=== PATIENT | female | born 1965 | race Caucasian/White ===

== ENCOUNTER 2023-08-08 13:47 | Outpatient (CLI) | payer OTHER, SELFPAY ==
--- NOTE | ~2023-08-08 | MM_ITS ---
EXAMINATION: MM screening dontrell BI w [place] HISTORY: Screening mammogram TECHNIQUE: Craniocaudal and mediolateral oblique 3-D tomosynthesis images were obtained and synthetic 2-D images were generated. Bilateral rotated lateral CC views. CAD analysis was submitted and interp reted. COMPARISON: No prior mammogram is available for comparison at this institution. BREAST PARENCHYMAL COMPOSITION: The breasts are heterogeneously dense, which may obscure small masses . FINDINGS: There is no evidence of suspicious mass, calcification, or architectural distortion to sugg est malignancy in either breast. IMPRESSION: 1. No mammographic evidence of malignancy. 2. Recommend routine screening mammography in one year. BI-RADS Category 1: Negative Reviewed, dictated and finalized at location B.
== END 2023-08-08 13:48 ==
LOC: MICIMG 13:49
PROVIDERS: PCP Emergency Medicine; Visit Provider Emergency Medicine
DX: Z12.31 Encounter for screening mammogram for malignant neoplasm of breast (principal)
CPT/HCPCS: 77063; 77067

== ENCOUNTER 2023-08-09 08:09 | Outpatient (CLI) | payer OTHER, SELFPAY ==
[2023-08-09 19:52] LABS: Alanine Aminotransferase 20 U/L (6-35); Albumin Level 4.3 g/dL (3.5-5.1); Alkaline Phosphatase 77 U/L (38-126); Anion Gap 8 mmol/L (4-12); Aspartate Amino Transferase 30 U/L (14-36); Bilirubin,Total 0.6 mg/dL (0.2-1.3); Blood Urea Nitrogen 15 mg/dL (7-17); Calcium 9.2 mg/dL (8.4-10.2); Carbon Dioxide 26 mmol/L (22-30); Chloride 102 mmol/L (98-107); Cholesterol 178 mg/dL (0-200); Estimated Glomerular Filt Rate > 60; Glucose 70 mg/dL (65-110); HDL Direct 72 mg/dL; Potassium 4.2 mmol/L (3.4-5.0); Sodium 136 mmol/L (137-145); Triglycerides 53 mg/dL (<150)
[2023-08-09 20:03] LABS: LDL Cholesterol Direct 97 mg/dL
== END 2023-08-09 08:10 | disposition home or self-care (01) ==
LOC: ANHGOSHLAB 08:10
PROVIDERS: PCP Emergency Medicine; Visit Provider Emergency Medicine
DX: Z13.1 Encounter for screening for diabetes mellitus (principal); Z13.220 Encounter for screening for lipoid disorders
CPT/HCPCS: 36415; 80053; 80061; 83036

== ENCOUNTER 2023-09-25 01:15 | Day surgery (SDC) | payer OTHER, SELFPAY ==
[2023-09-12 13:45] VITALS: BMI 22.5
[2023-09-25 07:33] VITALS: BP 115/86; PULSE 64; RESP 18; TEMP 36.5; O2SAT 100
[2023-09-25] MEDS: LACTATED RINGERS 1,000 ML 150 ML IV CONT (07:40)
--- NOTE | 2023-09-25 07:48 | WPDANESEPPF ---
Anes - Initial Pre Proc Eval Procedure: Operation Date: 09/25/23 08:30 Proposed Procedures p Screening Colonoscopy - Aurelio Zheng DO Date/Time: 09/25/23 07:48 Surgeon: Aurelio Zheng DO Pre Op Diagnosis: Screening for malignant neoplasm of colon Patient Data Age: 58 Gender: F Height: 1.65 m Weight: 65.6 kg Last Vital Signs Temp 36.5 C 09/25/23 07:33 Pulse 64 09/25/23 07:33 Resp 18 09/25/23 07:33 BP 115/86 09/25/23 07:33 Pulse Ox 100 09/25/23 07:33 O2 Del Method Room Air 09/25/23 07:33 Allergies Allergy/AdvReac Type Severity Reaction Status Date / Time No Known Allergies Allergy Verified 09/25/23 07:32 Home Medications Medication Instructions Recorded Confirmed Type aspirin 325 mg tablet 325 mg PO DAILY 07/17/23 09/12/23 History cholecalciferol (vitamin D3) 250 250 mcg PO DAILY 07/17/23 09/12/23 History mcg (10,000 unit) capsule multivitamin 1 tablet PO DAILY 07/17/23 09/12/23 History Patient hx anesthesia problems: none Family hx anesthesia problems: none Results Review: All pre-operative results and documents have been reviewed as part of the pre-operative evaluation. [facility] Surgical History Surgical History History of hysterectomy Family History Family History Father Hypertension Grandparent Diabetes mellitus Grandparent Cerebrovascular accident Social History Social History Social History: caffiene-coffee 1 day Smoking status: Never smoker Second hand tobacco smoke exposure: No Alcohol intake: current Drinks per week: 2 Alcohol use details: weekly Substance use: never Substance use type: does not use Do You Feel Safe in your Home?: Yes Lack of Transportation: No Lack of Food: Never True Current Housing: I Have Housing Concerned About Future Housing: No Difficulty Paying Gas/Electric Bills: No Difficulty Paying for Meds: No Currently Unemployed: No Education: Master's Degree or Higher Difficulty w/ Childcare or Family Care: No Living arrangements: with family Additional living arrangements comments: spouse 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 Gender identity (if verbalized by the patient): Female Sexual Orientation (if Verbalized by the Patient): Straight or Heterosexual Spiritual care concerns: No Agree to blood products: No Anes - Eval Final PreProcedure Day of Procedure 09/25/23 07:48 Patient weight: normal Heart: regular rate and rhythm Lungs: clear to auscultation Airway: Mallampati scale class II Neurological: alert and oriented Last oral intake: >/= 8 hours ASA classification: I Emergent: no Anesthetic plan: proceed Anesthesia type and monitoring: general GIVS and standard monitoring Results Review: All pre-operative results and documents have been reviewed as part of the pre-operative evaluation. Informed Consent: The patient's anesthetic plan and its attendant risks and benefits were discussed with the patient/family/POA. Questions were solicited and answers provided to the satisfaction of the patient/family/POA.
--- NOTE | 2023-09-25 08:28 | PM.IMHP ---
H&P: HPI History of Present Illness Date/Time: 09/25/23 08:28 Chief Complaint: screening for colorectal cancer Narrative: this is a 58-year-old woman who presents for colonoscopy. She denies any hematochezia or melena. She denies any first-degree relatives with history colon cancer. Review of Systems Review of Systems: All systems reviewed & are unremarkable except as noted in HPI and below Constitutional: Constitutional: Denies chills, Denies fever(s), Denies headache(s) and Denies weight loss Eyes: Eyes: Denies change in vision ENT: Denies dizziness, Denies headache(s), Denies neck mass and Denies throat swelling Cardiovascular: Cardiovascular: Denies chest pain, Denies lightheadedness and Denies dyspnea Respiratory: Respiratory: Denies cough, Denies dyspnea and Denies wheezing Gastrointestinal: Gastrointestinal: Denies abdominal pain, Denies change in bowel habits, Denies nausea and Denies vomiting Genitourinary: Genitourinary: Denies hematuria and Denies dysuria Musculoskeletal: Musculoskeletal: Reports as per HPI Integumentary/Breasts: Skin/Breast: Reports as per HPI Neurologic: Denies dizziness and Denies headache(s) Allergic/Immunologic: Allergic/Immunologic: Denies throat swelling and Denies wheezing PMFSH Surgical History Surgical History History of hysterectomy Family History Family History Father Hypertension Grandparent Diabetes mellitus Grandparent Cerebrovascular accident Social History Social History Social History: caffiene-coffee 1 day Smoking status: Never smoker Second hand tobacco smoke exposure: No Alcohol intake: current Drinks per week: 2 Alcohol use details: weekly Substance use: never Substance use type: does not use Do You Feel Safe in your Home?: Yes Lack of Transportation: No Lack of Food: Never True Current Housing: I Have Housing Concerned About Future Housing: No Difficulty Paying Gas/Electric Bills: No Difficulty Paying for Meds: No Currently Unemployed: No Education: Master's Degree or Higher Difficulty w/ Childcare or Family Care: No Living arrangements: with family Additional living arrangements comments: spouse 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 Gender identity (if verbalized by the patient): Female Sexual Orientation (if Verbalized by the Patient): Straight or Heterosexual Spiritual care concerns: No Agree to blood products: No Meds Home Medications and Allergies Home Medications Medication Instructions Recorded Confirmed Type aspirin 325 mg tablet 325 mg PO DAILY 07/17/23 09/12/23 History cholecalciferol (vitamin D3) 250 250 mcg PO DAILY 07/17/23 09/12/23 History mcg (10,000 unit) capsule multivitamin 1 tablet PO DAILY 07/17/23 09/12/23 History Allergies Allergy/AdvReac Type Severity Reaction Status Date / Time No Known Allergies Allergy Verified 09/25/23 07:32 Vital Signs Vital Signs - 24 hr 09/25/23 07:33 Temperature 36.5 C Pulse Rate 64 Respiratory Rate 18 Blood Pressure 115/86 Pulse Oximetry 100 Oxygen Delivery Room Air Exam Const: General: no acute distress and alert Orientation/consciousness: patient oriented x3 HENMT: Head: normocephalic and atraumatic Ears: hearing grossly normal bilaterally Face/Nose/Sinus: Normal nares present Mouth: Yes Normal oral and palatal mucosa present Eyes: Periorbital: periorbital findings normal Sclera: sclerae normal EOM: EOMs intact bilaterally Neck: Neck: normal visual inspection, no lymphadenopathy and trachea midline Chest: Chest palpation & inspection: normal inspection of the chest Resp: Effort & Inspection: normal respiratory effort Auscultation: clear to auscultation bilaterally Cardio: Ju
[2023-09-25 09:00] VITALS: BP 100/68; PULSE 65; RESP 32; O2SAT 98
[2023-09-25 09:10] VITALS: BP 110/76; PULSE 64; RESP 24; O2SAT 100
[2023-09-25 09:20] VITALS: BP 119/74; PULSE 64; RESP 24; O2SAT 100
== END 2023-09-25 09:23 | disposition home or self-care (01) ==
PROVIDERS: PCP Emergency Medicine; Visit Provider Surgery
PROC: 0DJD8ZZ Inspection of Lower Intestinal Tract, Via Natural or Artificial Opening Endoscopic (ICD-10-PCS; CPT 45378; principal; 2023-09-25 08:30)
DX: Z12.11 Encounter for screening for malignant neoplasm of colon (principal)
CPT/HCPCS: 45378; J2001; J2704; J7120

== ENCOUNTER 2024-01-22 09:16 | Outpatient (CLI) | payer OTHER, SELFPAY | END 2024-01-22 09:17 | disposition home or self-care (01) | LOC: ANHGOSHLAB 09:17 | PROVIDERS: PCP Emergency Medicine; Visit Provider Family Medicine | DX: Z78.0 Asymptomatic menopausal state (principal); Z82.62 Family history of osteoporosis | CPT/HCPCS: 36415; 82306 ==

== ENCOUNTER 2024-03-12 08:14 | Outpatient (CLI) | payer OTHER, SELFPAY ==
[2024-03-12 13:12] LABS: Vitamin D 25 Hydroxy 99.8 ng/mL
== END 2024-03-12 08:15 | disposition home or self-care (01) ==
LOC: ANHGOSHLAB 08:15
PROVIDERS: PCP Emergency Medicine; Visit Provider Nurse Practitioner Family
DX: E55.9 Vitamin D deficiency, unspecified (principal)
CPT/HCPCS: 36415; 82306

== ENCOUNTER 2024-03-14 08:16 | Outpatient (CLI) | payer OTHER, SELFPAY ==
--- NOTE | ~2024-03-14 | DEXA_ITS ---
Bone Density Report Name: YOCASTA GONZALEZ Age: 59 Sex: Female Ethnicity: White Date of : 1965 Indication: postmenopausal; screening for osteoporosis; prior fracture; hysterectomy; Referring Provider: NATHALY DEL CID Study: Bone densitometry was performed. Exam Date: March 14, 2024 Accession number: [id number] Bone Density: Region BMD T-score Z-score Classification AP Spine(L1-L4) 0.732 -2.9 -1.7 Osteoporosis Femoral Neck (Left) 0.592 -2.3 -1.2 Osteopenia Total Hip (Left) 0.729 -1.7 -1.0 Osteopenia Femoral Neck (Right) 0.637 -1.9 -0.8 Osteopenia Total Hip (Right) 0.781 -1.3 -0.5 Osteopenia Femoral Neck Mean 0.614 -2.1 -1.0 Osteopenia Total Hip Mean 0.755 -1.5 -0.7 Osteopenia World Health Organization criteria for BMD impression classify patients as: Normal (T-score at or above -1.0), Osteopenia (T-score between -1.0 and -2.5), or Osteoporosis (T-score at or below -2.5). 10-year Fracture Risk: FRAX not reported because: Some T-score for Spine Total or Hip Total or Femoral Neck at or below -2.5 Clinical Information Provided by Patient: Has had a low trauma fracture Has used the following medications: Vitamin D, Calcium, MULTI Has the following medical conditions: Hysterectomy Patient maximum height was 65.2 Menopause Age: 52 Drinks caffeinated beverages Onset of menses at age 18 Number of children 0 Impression: The patient has established osteoporosis, based on the Total Spine T-score and the existence of a prior fracture. The patient has risk factors, including: previous fracture. Discussion: HIGH RISK OF FRACTURE. BONE DENSITY IS UNDESIRABLY LOW AT ONE OR MORE SKELETAL SITES, CONSISTENT WITH POSTMENOPAUSAL OSTEOPOROSIS. This patient's lowest T-score, in a patient who has previously fractured, meets the World Health Organization's (WHO) criteria for severe osteoporosis. In untreated patients, the risk of osteoporotic fracture increases approximately two-fold for each 1.0 SD decrease in T-score. Low bone density is not the only risk factor for fracture; also consider factors such as patient's age, frailty or poor health, risk of falling, risk of injury, previous osteoporotic fracture, family history of osteoporosis, cigarette smoking, low body weight, etc. Not everyone with low bone mineral density has osteoporosis; osteomalacia and other metabolic bone disorders should also be considered. Patients who have osteoporosis should be evaluated for specific diseases and conditions (secondary causes) that may cause or contribute to bone loss. The [place] Association of Clinical Endocrinologists (AACE) and National Osteoporosis Foundation (NOF) recommend pharmacologic intervention for all postmenopausal women whose T-score is in this range. The patient should follow a healthful lifestyle (good nutrition with adequate calcium and vitamin D, and appropriate weight-bearing exercise). Follow-Up: Consider a repeat BMD and Vertebral Fracture Assessment (VFA) exam in 2 years or sooner if medically necessary, to reassess this patient's status. Reported by: KUSHAL on 03/14/2024 8:35:00 AM. Reviewed, dictated and finalized at location A.
== END 2024-03-14 08:17 | disposition home or self-care (01) ==
PROVIDERS: PCP Emergency Medicine; Visit Provider Family Medicine
DX: Z78.0 Asymptomatic menopausal state (principal); M85.89 Other specified disorders of bone density and structure, multiple sites; M81.0 Age-related osteoporosis without current pathological fracture
CPT/HCPCS: 77080

== ENCOUNTER 2024-09-15 08:05 | Outpatient (CLI) | payer OTHER, SELFPAY ==
--- OUTSIDE RECORDS SUMMARY | 2024-09-15 08:10 | XMS_ITS ---
Author Organization [facility] Billing Info Address [address] [place] [address] Care Team Providers Care Drain Technician Name Role Phone SVEN CALERO Primary Care Provider FREEDOM BOSE Unavailable Unavailable REASON FOR VISIT WWE/No Pap... ALJ Encounters Encounter Location Date Provider Diagnosis [id number] [id number] 04/13/2023 SVEN CALERO Plan Of Treatment No Information Progress Notes * Kemi GIVENS LDOB: [birth year] (59 yo F)Acc No.[id number]:04/13/2023 PROGRESS NOTE Patient: Kemi MAY Provider: Dennis Calero MD :1965 A ge:58 Y S ex:Female Date:04/13/2023 [facility]#:[id number] Address:[address] [place], [place] [id number] Subjective: * Chief Complaints: * 1 . WWE/No Pap... ALJ. * Medical History: Objective: * Vitals: Assessment: Plan: * Treatment: * Care Plan Details* * This progress note has not b een verified nor is it considered complete until locked and signed by the provider. Sign off status: Pending * Provider: Dennis Calero MD Date: 0 04/13/2023 Generated for Radhika hernandez/Mark/eTransmitting on: 0 09/15/2024 08:09 AM CDT
--- OUTSIDE RECORDS SUMMARY | 2024-09-15 08:10 | XMS_ITS | Patient Health Record ---
Author Organization [facility] Billing Info Address [address] [place] [address] Care Team Providers Care Houseperson Name Role Phone SVEN RAO Primary Care Provider FREEDOM BOSE Unavailable Unavailable Allergies No Known Allergies Reason For Referral No Information Medications Medication SIG (Take, Route, Frequency, Duration) Notes Start Date End Date Status Aspir-81 81 MG 1 tablet Orally Once a day for 30 day(s) Active Glucosamine with Vit D Active Multi For Her - as directed Orally Active Loratadine 10 MG 1 tablet Orally Daily prn allergies Active Collagen Active Immunizations Vaccine Route Administration Date Status Comme nts TDAP (ADACEL) IM Intramuscular 10/01/2017 Administered zFLU 4V (FLUARIX QUAD), 6 MO+, NO PRES - ALL PAYORS IM Intramuscular 04/12/2022 Administered zFLU 4V (FLUZONE QUAD), 6MO+ (0.5 ML), NO PRES - ALL PAYORS IM Intramuscular 03/16/2020 Administered [facility]: [phone] Social History Tobacco Use: Social History Observation Description Date Details (start date - stop date) Never Smoker NA - NA Tobacco Status: Question Answer Notes Patient is a never smoker Problems Problem Type SNOMED Code ICD Code Onset Dates Problem Status W/U Status Risk Notes Problem 24410443 MTHFR mutation (E72.12) Active confirmed Problem 180151349 Factor V Leiden (D68.51) Active confirmed Problem 741219202 History of basal cell carcinoma (Z85.828) Active confirmed sees every 6 monts Plan Of Treatment No Information Insurance Providers Payer Name Payer Address Payer Phone Subscriber Number Group Number Insured Name Patient Relationship to Insured Coverage Start Date Coverage End Date [employer] OPEN ACCESS PLUS [address] BRANDY CLAROS [id number] [phone] [id number] Kemi Givens Self - patient is the insured Medical (General) History Medical History History ICD Code Uterine fibroids ? Partial factor V leiden colonoscpy 09/2017 rec 5 yr f/u Surgical History Surgery Date(Month/Year) basal cell scalp 2003 [place] teeth removal 1986 tonsillectomy 1973 partical hysterectomy still has ovaries 10/2014 colonoscopy normal - rec 10 yr 10/23/2017 Hospitalization History Reason Date(Month/Year) Hysterectomy 2014
[2024-09-15 22:04] LABS: Alanine Aminotransferase 53 U/L (6-35); Albumin Level 4.1 g/dL (3.5-5.1); Alkaline Phosphatase 88 U/L (38-126); Anion Gap 5 mmol/L (4-12); Aspartate Amino Transferase 61 U/L (14-36); Bilirubin,Total 0.4 mg/dL (0.2-1.3); Blood Urea Nitrogen 16 mg/dL (7-17); Calcium 9.1 mg/dL (8.4-10.2); Carbon Dioxide 24 mmol/L (22-30); Chloride 105 mmol/L (98-107); Cholesterol 206 mg/dL (0-200); Estimated Glomerular Filt Rate > 60; Glucose 98 mg/dL (65-110); HDL Direct 83 mg/dL; Magnesium 1.9 mg/dL (1.6-2.3); Potassium 4.4 mmol/L (3.4-5.0); Sodium 134 mmol/L (137-145); Triglycerides 60 mg/dL (<150); Vitamin D 25 Hydroxy 83.6 ng/mL
[2024-09-15 23:28] LABS: LDL Cholesterol Direct 81 mg/dL
== END 2024-09-15 08:06 | disposition home or self-care (01) ==
LOC: ANHGOSHLAB 08:06
PROVIDERS: PCP Family Medicine; Visit Provider Family Medicine
DX: Z13.220 Encounter for screening for lipoid disorders (principal); Z13.1 Encounter for screening for diabetes mellitus; M81.0 Age-related osteoporosis without current pathological fracture
CPT/HCPCS: 36415; 80053; 80061; 82306; 83735

== ENCOUNTER 2024-10-15 13:22 | Outpatient (CLI) | payer OTHER, SELFPAY ==
--- NOTE | ~2024-10-15 | MM_ITS ---
EXAMINATION: MM screening dontrell BI w [place] HISTORY: Screening TECHNIQUE: Craniocaudal and mediolateral oblique 3-D tomosynthesis images were obtained and synthetic 2-D images were generated. CAD analysis was submitted and interpreted. COMPARISON: No prior mammogram is available for comparison at this institution. BREAST PARENCHYMAL COMPOSITION: 08/08/2023 FINDINGS: There is no evidence of suspicious mass, calcification, or architectural distortion to sugg est malignancy in either breast. There has been no suspicious interval change. IMPRESSION: 1. No mammographic evidence of malignancy. 2. Recommend routine screening mammography in one year. BI-RADS Category 1: Negative Reviewed, dictated and finalized at location B.
== END 2024-10-15 13:23 | disposition home or self-care (01) ==
LOC: MICIMG 13:22
PROVIDERS: PCP Family Medicine; Visit Provider Nurse Practitioner Family
DX: Z12.31 Encounter for screening mammogram for malignant neoplasm of breast (principal); R92.8 Other abnormal and inconclusive findings on diagnostic imaging of breast
CPT/HCPCS: 77063; 77067

== ENCOUNTER 2024-11-06 07:54 | Outpatient (CLI) | payer BC, SELFPAY ==
--- OUTSIDE RECORDS SUMMARY | 2024-11-06 08:00 | XMS_ITS | Patient Health Record ---
Author Organization [facility] Billing Info Address [address] [place] [address] Care Team Providers Care Circle Shear Operator Name Role Phone SVEN RAO Primary Care Provider [phone] FREEDOM BOSE Unavailable Unavailable Allergies No Known [...] - ALL PAYORS IM Intramuscular 03/16/[address] [facility]: [phone] Social History Tobacco Use: Social History Observation Description Date Details (start date - stop date) Never Smoker NA - NA Tobacco Status: Question Answer Notes Patient is a never smoker Problems Problem Type SNOMED Code ICD Code Onset Dates Problem Status W/U Status Risk Notes Problem 03079578 MTHFR mutation (E72.12) Active confirmed Problem 185386896 Factor V Leiden (D68.51) Active confirmed Problem 452951089 History of basal cell carcinoma (Z85.828) Active confirmed sees every 6 monts Plan Of Treatment No Information Insurance Providers Payer Name Payer Address Payer Phone Subscriber Number Group Number Insured Name Patient Relationship to Insured Coverage Start Date Coverage End Date [employer] OPEN ACCESS PLUS [address] BRANDY CLAROS [id number] Kemi Givens Self - patient is the insured Medical (General) History Medical History History ICD Code Uterine fibroids ? Partial factor V leiden colonoscpy 09/2017 rec 5 yr f/u Surgical History Surgery Date(Month/Year) colonoscopy normal - rec 10 yr 10/23/2017 partical hysterectomy still has ovaries 10/2014 tonsillectomy 1973 [place] teeth removal 1987 basal cell scalp 2004 Hospitalization History Reason Date(Month/Year) Hysterectomy 2014
[2024-11-06 13:18] LABS: Alanine Aminotransferase 20 U/L (6-35); Albumin Level 4.8 g/dL (3.5-5.1); Alkaline Phosphatase 76 U/L (38-126); Anion Gap 6 mmol/L (4-12); Aspartate Amino Transferase 48 U/L (14-36); Bilirubin,Total 0.6 mg/dL (0.2-1.3); Blood Urea Nitrogen 15 mg/dL (7-17); Calcium 9.6 mg/dL (8.4-10.2); Carbon Dioxide 26 mmol/L (22-30); Chloride 99 mmol/L (98-107); Estimated Glomerular Filt Rate > 60; Glucose 72 mg/dL (65-110); Potassium 5.0 mmol/L (3.4-5.0); Sodium 131 mmol/L (137-145); Total Protein 7.9 g/dL (6.3-8.2)
[2024-11-06 13:46] LABS: Hepatitis B Surface Antigen Negative (Negative)
[2024-11-06 13:52] LABS: HAV RESULT Negative (Negative); Hepatitis B Core IgM Result Negative (Negative)
== END 2024-11-06 07:55 | disposition home or self-care (01) ==
LOC: ANHGOSHLAB 07:57
PROVIDERS: PCP Family Medicine; Visit Provider Family Medicine
DX: R74.8 Abnormal levels of other serum enzymes (principal); E87.1 Hypo-osmolality and hyponatremia
CPT/HCPCS: 36415; 80048; 80074; 80076

== ENCOUNTER 2024-12-22 07:58 | Outpatient (CLI) | payer BC, SELFPAY ==
--- OUTSIDE RECORDS SUMMARY | 2024-12-22 08:27 | XMS_ITS | Patient Health Record ---
Author Organization [facility] Billing Info Address [address] [place] [address] Care Team Providers Care Chicken Boner Name Role Phone SVEN RAO Primary Care [...] - ALL PAYORS IM Intramuscular 03/16/2020 Administered [facility]: [phone] Social History Tobacco Use: Social History Observation Description Date Details (start date - stop date) Never Smoker NA - NA Tobacco Status: Question Answer Notes Patient is a never smoker Problems Problem Type SNOMED Code ICD Code Onset Dates Problem Status W/U Status Risk Notes Problem 29662132 MTHFR mutation (E72.12) Active confirmed Problem 330113161 Factor V Leiden (D68.51) Active confirmed Problem 593441548 History of basal cell carcinoma (Z85.828) Active confirmed sees every 6 monts Plan Of Treatment No Information Insurance Providers Payer Name Payer Address Payer Phone Subscriber Number Group Number Insured Name Patient Relationship to Insured Coverage Start Date Coverage End Date [employer] [id number]/[id number] [address] BRANDY CLAROS [id number] Kemi Givens Self - patient is the insured Medical (General) History Medical History History ICD Code Uterine fibroids ? Partial factor V leiden colonoscpy 09/2017 rec 5 yr f/u Surgical History Surgery Date(Month/Year) colonoscopy normal - rec 10 yr 10/23/2017 partical hysterectomy still has ovaries 10/2014 tonsillectomy 1973 [place] teeth removal 1987 basal cell scalp 2004 Hospitalization History Reason Date(Month/Year) Hysterectomy 2015
[2024-12-22 13:10] LABS: Alanine Aminotransferase 21 U/L (6-35); Albumin Level 4.4 g/dL (3.5-5.1); Alkaline Phosphatase 74 U/L (38-126); Anion Gap 8 mmol/L (4-12); Aspartate Amino Transferase 49 U/L (14-36); Bilirubin,Total 0.5 mg/dL (0.2-1.3); Blood Urea Nitrogen 14 mg/dL (7-17); Calcium 9.0 mg/dL (8.4-10.2); Carbon Dioxide 25 mmol/L (22-30); Chloride 99 mmol/L (98-107); Estimated Glomerular Filt Rate > 60; Glucose 95 mg/dL (65-110); Potassium 4.5 mmol/L (3.4-5.0); Sodium 132 mmol/L (137-145); Total Protein 7.5 g/dL (6.3-8.2)
[2024-12-22 13:17] LABS: Hematocrit 40.3 % (37.0-47.0); Hemoglobin 12.8 g/dL (12.0-15.0); Immature Granulocyte Percent A 0.2 % (0-0.5); Immature Reticulocyte Fraction 8.5 % (3.0-15.9); Lymphocytes Absolute Auto 1.28 K/mm3 (0.9-3.2); Mean Corpuscular HGB Conc 31.8 g/dl (32-36); Mean Corpuscular Hemoglobin 26.1 pg (26-34); Mean Corpuscular Volume 82.2 fl (80-100); Nucleated Red Blood Cells Absolute Auto 0.000 K/mm3 (0.0-0.012); Nucleated Red Blood Cells Perc 0.0 % (0.0-0.2); Platelet Count Result 233 k/mm3 (150-375); Red Blood Count 4.90 M/mm3 (4.2-5.4); Reticulocyte Hemoglobin Conten 31.8 pg (28.2-36.6); Reticulocytes Absolute 0.05 10^6/uL (0.02-0.10); White Blood Count 4.9 K/mm3 (4.5-10.0)
[2024-12-22 14:04] LABS: Vitamin B12 656.0 pg/mL (239-931)
[2024-12-24 14:08] LABS: ANA by IFA Rfx Titer/Pattern Negative (.)
== END 2024-12-22 07:59 | disposition home or self-care (01) ==
LOC: ANHGOSHLAB 07:59
PROVIDERS: PCP Family Medicine; Visit Provider Family Medicine
DX: E87.1 Hypo-osmolality and hyponatremia (principal); Z13.1 Encounter for screening for diabetes mellitus; R74.8 Abnormal levels of other serum enzymes; D64.9 Anemia, unspecified
CPT/HCPCS: 36415; 80053; 82607; 85025; 85046; 86038

== ENCOUNTER 2024-12-25 15:34 | Outpatient (CLI) | payer BC, SELFPAY ==
--- OUTSIDE RECORDS SUMMARY | 2018-03-27 08:00 | XMS_ITS | Continuity of Care Document ---
Author Organization [facility] Address [address] [place] [id number] Phone Care Team Providers Care Buildings And Grounds Superintendent Name Role Phone Geraldo Garduno MD Unavailable Unavailable Allergies, Adverse Reactions, Alerts Substance Reaction Status Criticality No Known Allergies Resolved No Inform ation Procedures Procedure Date Medications - Current Meds Documented Au NEW PATNT OV DTL EXAM X-RAY OF HAND 3 VIEW MIN. Advance Directives Directive Yes / No Effective Date File Name No Information Encounters Encounter Description Practice Location Reason(s) For Visit Diagnoses Date Provider Providers Copied on Encounter [facility], [address] [place] [address], [id number], tel:[phone] [facility] No Information Shaan Mccrary [address], [id number]. tel:[phone] NEW PATNT OV DTL EXAM [facility], [address] [place] [address], [id number], tel:[phone] [facility] Right Hand Cyst (chief complaint) Finger mass, right Shaan Mccrary [address], [id number]. tel:[phone] Referring Provider: Geraldo Gooden, Hermann [address], [address]. tel:[phone] Family History Family Member Type Diagnosis Age At Onset Problem (finding) Family history of Heart disease Problem (finding) Family history of hyper tension Payers Payer name Insurance type Covered republican ID Sia monique(s) [facility] [employer] [id number] Social History Type Description Quantity Date Captured Comments Alcohol Use Details Unknown Caffeine Use Details Unknown Tobacco Use Status No Information Smoking Status No Information Sex Female Chief Complaint And Reason For Visit No Information Reason For Referral Reason For Referral No Information History Of Present Illness Encounter Date Complaint History Of Prese nt Illness Right Hand Cyst Functional Status Date Functional Assessmen t No Information Instructions Date Instruction Additional Infor robert - Medication refills must be requested before 4pm Sunday through Sunday Related to Finger mass, right - Patient education available at [email or web address] on the Education tab Related to Finger mass, right Assessments Type Assessment Date No Information Patient Care Teams Name Effective Dates (start - stop) Status Members No Information
[2024-12-25 17:22] LABS: Alanine Aminotransferase 21 U/L (6-35); Albumin Level 4.7 g/dL (3.5-5.1); Alkaline Phosphatase 69 U/L (38-126); Anion Gap 4 mmol/L (4-12); Aspartate Amino Transferase 42 U/L (14-36); Bilirubin,Total 0.4 mg/dL (0.2-1.3); Blood Urea Nitrogen 16 mg/dL (7-17); CRP < 0.5 mg/dL (<1.0); Calcium 9.5 mg/dL (8.4-10.2); Carbon Dioxide 28 mmol/L (22-30); Chloride 100 mmol/L (98-107); Estimated Glomerular Filt Rate > 60; Glucose 93 mg/dL (65-110); Potassium 4.6 mmol/L (3.4-5.0); Sodium 132 mmol/L (137-145); Total Protein 7.9 g/dL (6.3-8.2); Uric Acid 4.5 mg/dL (2.5-7.5)
[2024-12-25 17:55] LABS: Hepatitis B Surface Antigen Negative (Negative)
[2024-12-25 18:01] LABS: HAV RESULT Negative (Negative); Hepatitis B Core IgM Result Negative (Negative)
== END 2024-12-25 15:35 | disposition home or self-care (01) ==
LOC: ANHGOSHLAB 15:35
PROVIDERS: PCP Family Medicine; Visit Provider Family Medicine
DX: R74.8 Abnormal levels of other serum enzymes (principal); M19.041 Primary osteoarthritis, right hand; E87.1 Hypo-osmolality and hyponatremia
CPT/HCPCS: 36415; 80048; 80074; 80076; 84550; 85652; 86140; 86430

== ENCOUNTER 2024-12-25 15:48 | Outpatient (CLI) | payer BC, SELFPAY ==
--- NOTE | ~2024-12-25 | XR_ITS ---
XR hand RT min 3V 12/25/2024 15:56 Indication: Osteoarthritis Procedure: 3 views right hand Comparison: No prior studies for comparison. Findings: Osteopenia. No fracture, subluxation or dislocation. No foreign bodies. No focal soft tissue abnormality. Impression: 1: No acute bone or joint abnormality. Reviewed, dictated and finalized at location O. Impression: 1: No acute bone or joint abnormality.
== END 2024-12-25 15:49 | disposition home or self-care (01) ==
PROVIDERS: PCP Family Medicine; Visit Provider Family Medicine
DX: M19.041 Primary osteoarthritis, right hand (principal)
CPT/HCPCS: 73130

== ENCOUNTER 2025-01-14 09:15 | Outpatient (CLI) | payer BC, SELFPAY ==
--- NOTE | ~2025-01-14 | US_ITS ---
EXAMINATION: US abdomen complete, 01/14/2025 9:16 CDT HISTORY: R74.8 - Abnormal levels of other serum enzymes COMPARISON: None Technique: Wells-scale and color Doppler images were obtained. Findings: LIVER: Lliver contours intact, no lesions. Normal echogenicity. . GALLBLADDER/BILIARY: Unremarkable.No cholelithiais, wall thickening or pericholecystic fluid. No biliary dilatation. CBD 5 mm. [place] sign negative. PANCREAS: Pancreas limited by bowel gas. SPLEEN: Spleen measures 11.9 cm.. KIDNEYS: Right Kidney: Right kidney 11 x 4 x 3.6 cm, normal. Left Kidney: Left kidney 10.8 x 3.6 x 5.3 cm, normal. AORTA: Normal caliber aorta. IVC: Unremarkable. FREE FLUID: None. Impression: The visualized liver appears unremarkable. Reviewed, dictated and finalized at location P. Impression: The visualized liver appears unremarkable.
== END 2025-01-14 09:16 | disposition home or self-care (01) ==
LOC: GOSHIMG 09:15
PROVIDERS: PCP Family Medicine; Visit Provider Family Medicine
DX: R74.8 Abnormal levels of other serum enzymes (principal); M19.041 Primary osteoarthritis, right hand; E87.1 Hypo-osmolality and hyponatremia
CPT/HCPCS: 76700